=== PATIENT | female | born 1950 | race Caucasian/White ===

== ENCOUNTER 2024-07-03 17:21 | Emergency (ER) | payer MEDICARE ==
[2024-07-03] MEDS: KETOROLAC 15 MG/ML 1 ML VIAL IM STA (19:31)
[2024-07-03] MEDS: ACETAMINOPHEN TAB 325 MG TAB PO STA (19:37)
--- NOTE | 2024-07-03 20:18 | XR ---
EXAMINATION TYPE: XR shoulder complete LT DATE OF EXAM: 07/03/2024 8:02 PM COMPARISON: None. CLINICAL INDICATION: Female, 74 years old with history of fall, pain near distal humerus, shoulder pr eran, TECHNIQUE: XR shoulder complete LT view(s) obtained. FINDINGS: There is dislocation of the humeral head from the glenoid. The acromio-clavicular junction is normal. No acute fractures or dislocations are evident. IMPRESSION: 1. Dislocation of the left humeral head from the glenoid. [facility], , 07/03/2024 8:15 PM
--- NOTE | 2024-07-03 20:19 | XR ---
EXAMINATION TYPE: XR humerus LT DATE OF EXAM: 07/03/2024 8:02 PM COMPARISON: None. CLINICAL INDICATION: Female, 74 years old with history of fall, pain near distal humerus, shoulder pr ominence, pain TECHNIQUE: 2 view(s) obtained. FINDINGS: No acute fractures evident. The humeral head is dislocated from the glenoid. Additional osseous struc tures within the field of view appear unremarkable. IMPRESSION: 1. Dislocation of the humeral head from the glenoid. 2. No acute fractures evident. [facility], , 07/03/2024 8:16 PM
--- NOTE | 2024-07-03 20:24 | ED ---
General Adult HPI - General Chief complaint: Fall Stated complaint: Fall-L arm injury Time Seen by Provider: 07/03/24 18:37 Source: patient Mode of arrival: ambulatory Limitations: physical limitation - History of Present Illness Initial comments: Patient is a 74 y/o female w/ no significant PMH presenting for left shoulder injury. Patient states she tripped and fell onto her left arm around 4 pm this afternoon. Since then has been unable to lift her left arm and endorses pain near mid bicep. She denies numbness , elbow pain, wrist pain or additional injuries. Denies neck pain or head injury. no LOC. Is not on blood thinners. 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 Of note, pt states that she has had anesthesia in the past and at one point did become sick/nauseous so was told that should she need sedation again she may need medicine to prevent those symptoms. - Related Data Allergies Allergy/AdvReac Type Severity Reaction Status Date / Time No Known Allergies Allergy Verified 07/03/24 17:40 Review of Systems ROS Statement: Those systems with pertinent positive or pertinent negative responses have been documented in the HPI. ROS Other: All systems not noted in ROS Statement are negative. Past Medical History Past Medical History: No Reported History Past Surgical History: Section, Orthopedic Surgery Additional Past Surgical History / Comment(s): skin grafts Smoking Status: Never smoker Past Alcohol Use History: Occasional Past Drug Use History: None Reported General Exam - General Exam Comments Initial Comments: PE: CONSTITUTIONAL: No apparent distress, well appearing SKIN: Warm, dry, no jaundice, hives or petechiae; no lacerations, abrasions, bruising or hematomas EYES: Pupils are equally round, extraocular movements intact without nystagmus, clear conjunctiva, non-icteric sclera HENT: Normocephalic, atraumatic, moist mucus membranes, oropharynx clear without exudates NECK: , Full range of motion, normal appearance no midline spinal TTP PULMONARY: Clear to auscultation without wheezes, rhonchi, or rales, normal excursion, no accessory muscle use and no stridor CARDIOVASCULAR: Regular rate, rhythm, normal S1 and S2. No appreciated murmurs, rubs or gallops. Strong radial pulses with intact distal perfusion. No lower extremity edema GASTROINTESTINAL: Soft, active bowel sounds throughout, non-tender, non- distended, no palpable masses, no rebound or guarding. No hepatosplenomegaly MUSCULOSKELETAL: Anterior left shoulder appears "squared off"/more prominent when compared to right shoulder, pt unable to abduct or flex left shoulder, mid bicep, no TTP or deformity of the elbow, forearm, or hand; no hematomas, sensation to lght touch in the deltoid region intact, 2+ radial pulse limited flexion and extension of the elbow 2/2 pain radiating towards prox upper ex tremity, full ROM of wrist, Extremities otherwise atraumatic NEUROLOGIC:_a/o x 3, GCS 15, normal mentation and speech. sensation intact throughout affected extremity PSYCHIATRIC:_normal mood and affect, thought process is clear and linear Limitations: physical limitation Course Vital Signs 07/03/24 07/03/24 07/03/24 17:40 19:27 21:14 Temperature 97.6 F 98.4 F Pulse Rate 59 L 72 68 Respiratory 18 16 18 Rate Blood Pressure 111/59 133/68 132/66 O2 Sat by Pulse 99 98 100 Oximetry 07/03/24 07/03/24 07/03/24 21:15 21:20 21:25 Temperature Pulse Rate 72 73 70 Respiratory 12 2 L 10 L Rate Blood Pressure 145/71 118/68 117/67 O2 Sat by Pulse 98 85 L 95 Oximetry 07/03/24 07/03/24 07/03/24 21:30 21:35 21:36 Temperature Pulse Rate 68 68 65 Respiratory 18 18 18 Rate Blood Pressure 116/61 114/60 113/58 O2 Sat by Pulse 97 97 97 Oximetry 07/03/24 22:42 Temperature 98.6 F Pulse Rate 71 Respiratory 16 Rate Blood Pressure 123/62 O2 Sat by Pulse 97 Oximetry Procedures - [place] Protocol (Time Out) Procedure Performed:: Left shoulder reduction, procedureal sedation Performing Provider: Jalyn Gonzalez Timeout Date: 07/03/24 Timeout Time: 21:14 Patient Identification (2 identifiers required): Chart, Verbal, Arm Band, Name Patient/Legal Search Marketing Analyst has Confirmed: Identity, Site, Procedure, Consent Site: Left shoulder Site Marked: Not Applicable Final Confirmation: Procedure, Site, Laterality - Orthopedic Joint Reduction Joint #1 Consent Obtained: verbal consent Side: left Joint Reduction Location: shoulder Analgesia: procedural sedation Shoulder Technique Used (if applicable): traction/counter-traction, scapula manipulation, external rotation Technique Used: traction/counter-traction Post-Reduction Neuro Exam: intact Post-Reduction Vascular Exam: intact Post Reduction X-Ray Obtained: Yes Post Reduction X-Ray Results: reduced Splint Applied: Yes Patient Tolerated Procedure: well - Procedural Sedation *Procedural Sedation Start Time: 21:15 *Procedural Sedation Stop Time: 21:36 *Risks,benefits, and alternative therapies discussed?: Yes *Patient indicates understanding of risk/benefit discussion?: Yes *Indications: fracture/dislocation reduction Presedation Evaluation: Pt has no allergies, awake and alert, hx nausea w/ prior sedation, VSS *Previous Adverse Reaction to Anesthesia/Sedation?: Yes (nausea) * Testing Complete?: No Reason Test Not Complete:: Post-menopausal *ASA Class: I *Mallampati Airway Score: 2 Preparation: nuclear monitoring technician applied, pulse oximeter, capnometry used, supplemental O2 applied, reversal agents at bedside, suction/airway equipment at bedside, IV secured Fentanyl: IV (75) Fentanyl Dose: 75 IV Propofol Dose (mgs): 140 Complications: Respiratory Depression Requiring Ambulance Assistance (Pt became apneic immediately following initial bolus propofol 80 mg, pulse ox 85%, required assisted ventilations for brief period, responsiveness increased and assisted respirations were no longer required) Interventions: airway repositioned, assist by BVM Patient Tolerated Procedure: well Medical Decision Making - Medical Decision Making Was pt. sent in by a medical professional or institution ([facility], PLASTIC DIE MAKER APPRENTICE, urgent care, hospital, or fci...) When possible be specific @ -No Did you speak to anyone other than the patient for history (EMS, parent, family, police, friend...)? What history was obtained from this source @Pt's son assisted in providing hx Did you review nursing and triage notes (agree or disagree)? Why? @ -I reviewed nursing and triage notes- of note pt currently denies neck injury or pain, C collar was applied in triage however pt had removed it herself by the time of my assessment, stating she had no pain and is able to move her neck through full ROM without issue Were old charts reviewed (outside hosp., previous admission, EMS record, old EKG, old radiological studies, urgent care reports/EKG's, fci records)? Report findings @ -Medical records reviewed- no prior records available for review Differential Diagnosis (chest pain, altered mental status, abdominal pain women, abdominal pain men, vaginal bleeding, weakness, fever, dyspnea, syncope, headache, dizziness, GI bleed, back pain, seizure, CVA, palpatations, mental health, musculoskeletal)? @Differential Musculoskeletal Muscular strain, contusion, ligament sprain, fracture, dislocation, arthritis, muscle spasm, nerve compression, .. This is not meant to be in all inclusive list X-rays interpreted by me (1pt min.). @ Left humeral head anterior dislocation, no fractures present on XR shoulder or humerus CT interpreted by me (1pt min.). @ -None done U/S interpreted by me (1pt. min.). @ -None done What testing was considered but not performed or refused? (CT, X-rays, U/S, labs)? Why? @ -None What meds were considered but not given or refused? Why? @ Discussed trialing small dose versed w/ pain medicine as opposed to full sedation however pt preferred conscious sedation Did you discuss the management of the patient with other professionals (professionals i.e. , PA, PLASTIC DIE MAKER APPRENTICE, lab, RT, psych nurse, neonatal social worker, leather sponger, teacher, intelligence officer basic, medical case manager)? Give summary @ -No Was smoking cessation discussed for >3mins.? @ -No Was critical care preformed (if so, how long)? @ -No Were there social determinants of health that impacted care today? How? (Homelessness, low income, unemployed, alcoholism, drug addiction, transportation, low edu. Level, literacy, decrease access to med. care, long-term, rehab)? @ -No Was there de-escalation of care discussed even if they declined (Discuss DNR or withdrawal of care, Hospice)? @ -No What co-morbidities impacted this encounter? (DM, HTN, Smoking, COPD, CAD, Cancer, CVA, ARF, Chemo, Hep., AIDS, mental health diagnosis, sleep apnea, morbid obesity)? @ -None Was patient admitted / discharged? Hospital course, mention meds given and route, prescriptions, significant lab abnormalities, going to OR and other pertinent info. @Discharged- Pt is a pleasant 74 y/o female, otherwise healthy, presenting for slip and fall with resultant left shoulder injury. Complete history and physical exam performed. Notable for left shoulder appearing anteriorly displaced when compared to right, TTP mid bicep, no other gross deformity, extremity neurovaascularly intact. Unable to abduct or flex/ move left shoulder. Diff dx as above. Top concern for shoulder dislocation vs humerus fracture. Discussed with pt plan for XRs, pain control and potential need for sedation. Pt agreeable with POC. XR sig. for left shoulder dislocation, updated pt, her pain is currently 6/10. Discussed risks and benefits of sedation and shoulder reduction w/ pt and son. They verbalized understanding, all questions answered, agreeable with plan. Pt premedicated with fentanyl and zofran. Please see procedure note for further details of sedation and reduction. Pt tolerated procedure well. Endorsed improvement of pain post reduction. Post reduction assessment showed LUE neurovascularly intact, improved ROM, sensation intact in deltoid region, 2+ radial pulse palpated. Post reduction films obtained and reviewed by myself which appeared to show successful reduction of the humeral head into the glenoid. Post sedation assessment completed by myself approximately 15 minutes post reduction. Pt awake, alert, returned to baseline. Trialing PO fluids. Pending read of XR and tolerating PO intake pt signed out to oncoming physician, Dr. Johnson. Undiagnosed new problem with uncertain prognosis? @ -No Drug Therapy requiring intensive monitoring for toxicity (Heparin, Nitro, Insulin, Cardizem)? @ -No Were any procedures done? Yes, sedation and reduction Diagnosis/symptom? fall, shoulder dislocation Acute, or Chronic, or Acute on Chronic? @ acute] Uncomplicated (without systemic symptoms) or Complicated (systemic symptoms)? @ uncomplicated Side effects of treatment? @ -No Exacerbation, Progression, or Severe Exacerbation? @ -No Poses a threat to life or bodily function? How? (Chest pain, [place], [place], pneumonia, PE, COPD, DKA, ARF, appy, cholecystitis, CVA, Diverticulitis, Homicidal, Suicidal, threat to staff... and all critical care pts) Yes, if left untreated would result in inability to use LUE Disposition Clinical Impression: Fall, Dislocation of left shoulder joint Disposition: HOME SELF-CARE Condition: Good Instructions (If sedation given, give patient instructions): Shoulder Dislocation (ED), Moderate Sedation (ED) Additional Instructions: Every disease is a spectrum and a small chance still exists that a serious condition could develop, for this reason, please monitor yourself closely for new, changing or worsening symptoms, uncontrollable pain, swelling, new numbness, pale color or blue color of your arm=, inability to tolerate/keep down fluids or your medications, inability to follow up with outpatient providers as instructed and should you experience these symptoms or should you have any further concerns for your wellbeing please return to the ED or call 911 immediately. Your pain can be treated with ibuprofen and acetaminophen. You can take up to 400-600 mg of ibuprofen (Advil, Motrin) 3 times daily (every 8 hours) but can also use lower doses if this relieves your pain. Some people prefer naproxen (Aleve, Naprosyn) which can be taken in doses of 500 mg up to twice a day. Do not take both of these medicines together, and do not combine either with ketorolac (Toradol), meloxicam (Mobic), or indomethacin (Tivorbex). Some people can develop stomach discomfort with higher doses of either ibuprofen or naproxen, if this develops decrease your dose or stop taking it. If you need to take this dose daily for more than a week, please schedule an appointment for re-evaluation with your PCP. Please take these medications with food. You can take up to 1000 mg of acetaminophen (Tylenol) every 6 hours. Be careful as this is included in some medicines like Nyquil, Bracey, Percocet, Vicodin, STANBACK, Goody's Powders, and Excedrin. You can also use lidocaine patches for topical pain. You can purchase 4% patches over the counter at most drug stores. These can be helpful for pain from your muscles or bones. Please keep your arm in the provided sling until seen by orthopedics, Dr. Washburn. PLEASE call your primary care physician as soon as possible to arrange / discuss plan for followup appointment. Appointment in the next 1-3 days is strongly encouraged if possible. PLEASE let us know here before you leave if there is anything further we can do to be of any assistance. Take care and feel Better! Is patient prescribed a controlled substance at d/c from ED?: No Referrals: None,Stated [Primary Care Provider] - 1-2 days Collin Washburn MD [STAFF PHYSICIAN] - 1-2 days
[2024-07-03] MEDS: ONDANSETRON 4 MG/2 ML VIAL IVP STA (21:09)
[2024-07-03] MEDS: SODIUM CHLORIDE 0.9% 1,000 ML IV ONE (21:09)
[2024-07-03] MEDS: fentaNYL (PF) 50 MCG/ML 2 ML AMP IVP STA (21:11)
[2024-07-03] MEDS: PROPOFOL 10 MG/ML 20 ML VIAL IV ONE ×2 (21:15→21:24)
--- NOTE | 2024-07-03 22:05 | XR ---
EXAMINATION TYPE: XR shoulder limited LT DATE OF EXAM: 07/03/2024 9:41 PM COMPARISON: None. CLINICAL INDICATION: Female, 74 years old with history of post reduction, pain TECHNIQUE: AP left shoulder view(s) obtained. FINDINGS: Humeral head articulates with the glenoid. The previous dislocation has been reduced. No acute fractu res are identified on this image IMPRESSION: 1. No acute fracture post reduction left shoulder [facility], , 07/03/2024 10:03 PM
[2024-07-03] MEDS: IBUPROFEN 600 MG STARTER PACK 4 TAB BTL PO STA (22:40)
[2024-07-03] MEDS: ACET/COD 300 MG/30 MG STARTER PACK 6 TAB BTL PO STA (22:41)
[2024-07-03 22:47] VITALS: BP 123/62; PULSE 71; RESP 16; TEMP 98.6
== END 2024-07-03 22:42 | disposition home or self-care (01) ==
LOC: EC 17:21
DX: S43.005A Unspecified dislocation of left shoulder joint, initial encounter (principal); W01.0XXA Fall on same level from slipping, tripping and stumbling without subsequent striking against object, initial encounter
CPT/HCPCS: 73030; 73020; 73060; 23650; 99152; 99284; 96374; 96375; 96361; 96372; L0120; J2405; J3010; J1885; J2704